=== PATIENT | female | born 1950 | race Two or more races ===

== ENCOUNTER → 2019-11-23 11:56 | Outpatient (CLI) | payer OTHER | END | disposition home or self-care (01) | LOC: LAB 11:56 | DX: J45.998 Other asthma (principal); E11.65 Type 2 diabetes mellitus with hyperglycemia; E11.21 Type 2 diabetes mellitus with diabetic nephropathy; E03.8 Other specified hypothyroidism; E78.2 Mixed hyperlipidemia; N39.0 Urinary tract infection, site not specified; D64.89 Other specified anemias ==